=== PATIENT | female | born 1960 | race Caucasian/White ===

== ENCOUNTER 2017-10-14 12:14 | Emergency (ER) | payer OTHER ==
[~2017-10-14] VITALS: Ht 160 cm; Wt 59.0 kg
[2017-10-14 12:14] VITALS: BP 174/83; PULSE 85; RESP 16; TEMP 98.6; O2SAT 100
[2017-10-14] MEDS ORDERED: MUPI2OIN TOPICAL (12:36)
[2017-10-14] MEDS ORDERED: CLIN300C5 PO (12:36)
--- NOTE | 2017-10-14 13:15 | PD ---
HPI Chief Complaint: Skin Problem Time Seen by Provider: 12:29 Travel History International Travel<30 days: No Contact w/Intl Traveler<30days: No Traveled to known affect area: No History of Present Illness HPI 57-year-old right-hand dominant female presents to the ED for evaluation of 2 day history of redness and purulent discharge from surgical wound of the right hand. Patient states that she underwent carpal tunnel release on 09/29 in [place]. She is here visiting for the next few weeks. Onset after the patient washed dishes, submerging her hand with the wound. She denies fevers, chills, nausea, vomiting, numbness, tingling, weakness, limitation to range of motion of the extremity. Endorses tightness in the fingers with flexion, secondary to edema. She states that she was seen at an urgent care yesterday and has taken a few doses of clindamycin and applied mupirocin ointment. She states that she attempted to find follow-up on her own but "no one can see me for a few weeks." PFSH Past Medical History Medical History: Denies Significant Hx Diminished Hearing: No ?: Not Menopausal: Yes : 3 Para: 2 Miscarriage: 1 Past Surgical History Section: Yes (x 1) Gynecologic Surgery: Yes (c-sec x 1) Other Surgery: Yes (right carpel tunnel) Social History Alcohol Use: No Tobacco Use: No Substance Use: No Allergies-Medications (Allergen,Severity, Reaction): Coded Allergies: No Known Allergies (Unverified , 10/14/17) Reported Meds & Prescriptions Reported Meds & Active Scripts Active Ibuprofen 400 Mg Tab 400 Mg PO Q8H Keflex (Cephalexin) 500 Mg Cap 500 Mg PO Q6H 7 Days Reported Mupirocin Topical (Mupirocin) 2 % Oint 1 Applic TOPICAL TID Clindamycin (Clindamycin HCl) 300 Mg Cap 300 Mg PO TID Review of Systems Except as stated in HPI: all other systems reviewed are Neg Physical Exam Narrative GENERAL: Well-nourished, well-developed white female in no acute distress. SKIN: Focused skin assessment warm/dry. HEAD: Normocephalic. EYES: No scleral icterus. No injection or drainage. NECK: Supple, trachea midline. No JVD or lymphadenopathy. CARDIOVASCULAR: Regular rate and rhythm without murmurs, gallops, or rubs. RESPIRATORY: Breath sounds equal bilaterally. No accessory muscle use. GASTROINTESTINAL: Abdomen soft, non-tender, nondistended. MUSCULOSKELETAL: No cyanosis, or edema. FOCUSED RIGHT UPPER EXTREMITY EXAM: 2+ radial pulse. There is a 3 cm incision over the palmar aspect of the right hand. The area is erythematous, edematous and tender. There is a small amount of purulent drainage. There are a few sutures in place and the wound is partially dehisced. Patient is able to flex and extend the fingers and the wrist. Sensation is intact to light touch distally. BACK: Nontender without obvious deformity. No CVA tenderness. Data Data Last Documented VS Vital Signs Date Time Temp Pulse Resp B/P (MAP) Pulse Ox O2 Delivery O2 Flow Rate FiO2 10/14/17 14:53 10/14/17 12:14 98.6 85 16 100 Room Air Orders Orders Iv Access Insert/Monitor (10/14/17 12:45) Complete Blood Count With Diff (10/14/17 12:45) Basic Metabolic Panel (Bmp) (10/14/17 12:45) Lidocaine 1% Inj (Xylocaine 1% Inj) (10/14/17 14:00) Ed Discharge Order (10/14/17 14:25) Labs Laboratory Tests Test 10/14/17 13:00 White Blood Count 8.6 TH/MM3 Red Blood Count 4.58 MIL/MM3 Hemoglobin 13.8 GM/DL Hematocrit 41.0 % Mean Corpuscular Volume 89.7 FL Mean Corpuscular Hemoglobin 30.1 PG Mean Corpuscular Hemoglobin Concent 33.6 % Red Cell Distribution Width 12.9 % Platelet Count 273 TH/MM3 Mean Platelet Volume 8.9 FL Neutrophils (%) (Auto) 65.8 % Lymphocytes (%) (Auto) 26.8 % Monocytes (%) (Auto) 5.8 % Eosinophils (%) (Auto) 0.8 % Basophils (%) (Auto) 0.8 % Neutrophils # (Auto) 5.6 TH/MM3 Lymphocytes # (Auto) 2.3 TH/MM3 Monocytes # (Auto) 0.5 TH/MM3 Eosinophils # (Auto) 0.1 TH/MM3 Basophils # (Auto) 0.1 TH/MM3 CBC Comment DIFF FINAL Differential Comment Blood Urea Nitrogen 12 MG/DL Creatinine 0.91 MG/DL Random Glucose 95 MG/DL Calcium Level 8.8 MG/DL Sodium Level 139 MEQ/L Potassium Level 3.9 MEQ/L Chloride Level 106 MEQ/L Carbon Dioxide Level 26.5 MEQ/L Anion Gap 7 MEQ/L Estimat Glomerular Filtration Rate 64 ML/MIN MDM Medical Decision Making Medical Screen Exam Complete: Yes Emergency Medical Condition: Yes Differential Diagnosis Postoperative complication versus surgical wound infection versus cellulitis versus sepsis versus other Narrative Course 57-year-old right-hand dominant female presents to the ED for evaluation of 2 day history of redness and purulent discharge from surgical wound of the right hand. Patient states that she underwent carpal tunnel release on 09/29 in [place]. Onset after the patient washed dishes two days ago, submerging her hand with the wound. Endorses tightness in the fingers with flexion, secondary to edema. She states that she was seen at an urgent care yesterday and has taken a few doses of clindamycin and applied mupirocin ointment. Patient afebrile on presentation. On exam the wound has partially dehisced, localized cellulitic changes. I discussed the patient with Dr. Shirley. He recommends I&D in the ED and follow-up in the office outpatient. Patient is agreeable to this plan. I&D was performed. Please of her procedure note for details. Patient's prescribed Keflex, instructed to continue with clindamycin, discontinue mupirocin. She is provided with Dr. Shirley's follow-up information and instructed to call this afternoon for an appointment later this week. We discussed reasons to return to the ED. The patient and her indicated understanding of instructions and are agreeable to the care plan. The patient is stable and discharged home. Procedures Procedure Narrative Irrigation and Drainage right palmar surgical wound: The wound was anesthetized with 3 cc 1% lidocaine. Adequate anesthesia was obtained. The wound was surgically cleaned with Betadine 3. Sterile field was maintained throughout the whole procedure. Remaining sugars were removed from the wound. The wound was irrigated with 1 L normal saline. A clean, dry dressing was applied. Patient tolerated procedure well. She is instructed to leave this dressing on until evaluated by the hand surgeon. Diagnosis Primary Impression: Wound infection after surgery Qualified Codes: T81.4XXA - Infection following a procedure, initial encounter Referrals: Jean Shirley MD Patient Instructions: General Instructions, Wound Infection (ED) Additional Instructions: Rest, hydrate. Continue the antibiotics prescribed at the urgent care. Begin Keflex today as well. Discontinue Bactroban ointment. Elevate the arm as possible. Ice in 10 minute sessions a few times a day. 400 mg ibuprofen every 8 hours to reduce pain and inflammation. Follow-up with the hand surgeon this afternoon as discussed. Do not remove the dressing applied today until evaluated by the hand surgeon. Return to the ED for worsening symptoms or any urgent or emergent medical condition. Med/Other Pt SpecificInfo: Prescription(s) given Scripts Ibuprofen (Ibuprofen) 400 Mg Tab 400 MG PO Q8H, #15 TAB 0 Refills Prov: Jesica Phillips MD 10/14/17 Cephalexin (Keflex) 500 Mg Cap 500 MG PO Q6H for Infection for 7 Days, #28 CAP 0 Refills Prov: Jesica Phillips MD 10/14/17 Disposition: 01 DISCHARGE HOME Condition: Stable Nuzhat Galvan Oct 14, 2017 13:15
[2017-10-14 13:31] LABS: AUTOMATED NEUTROPHIL # 5.6 TH/MM3 (1.8-7.7); BASOPHIL # 0.1 TH/MM3 (0-0.2); BASOPHIL % 0.8 % (0.0-2.0); EOSINOPHIL # 0.1 TH/MM3 (0-0.4); EOSINOPHIL % 0.8 % (0.0-4.0); HEMOGLOBIN 13.8 GM/DL (11.6-15.3); LYMPH % 26.8 % (9.0-44.0); LYMPHOCYTE # 2.3 TH/MM3 (1.0-4.8); MEAN CELL VOLUME 89.7 FL (80.0-100.0); MEAN CORPUSCULAR HEMOGLOBIN 30.1 PG (27.0-34.0); MEAN CORPUSCULAR HGB CONC 33.6 % (32.0-36.0); MEAN PLATELET VOLUME 8.9 FL (7.0-11.0); MONO % 5.8 % (0.0-8.0); MONOCYTE # 0.5 TH/MM3 (0-0.9); NEUT % 65.8 % (16.0-70.0); PLATELET COUNT 273 TH/MM3 (150-450); RED BLOOD COUNT 4.58 MIL/MM3 (4.00-5.30); RED CELL DISTRIBUTION WIDTH 12.9 % (11.6-17.2); WHITE BLOOD COUNT 8.6 TH/MM3 (4.0-11.0)
[2017-10-14 13:41] LABS: BICARBONATE 26.5 MEQ/L (21.0-32.0); CALCIUM 8.8 MG/DL (8.5-10.1); CREATININE 0.91 MG/DL (0.50-1.00)
[2017-10-14] MEDS ORDERED: LIDOCAINE HCL 1% 20 ML VIAL INFIL ONE (14:00)
[2017-10-14] MEDS ORDERED: CEPH-460 PO (14:25)
[2017-10-14] MEDS ORDERED: IBUP1TAB5 PO (14:25)
== END 2017-10-14 14:54 | disposition home or self-care (01) ==
LOC: NEPE 12:14
DX: T81.4XXA Infection following a procedure, initial encounter (principal)
CPT/HCPCS: 10061; 80048; 85025